=== PATIENT | male | born 1975 | race Caucasian/White ===

== ENCOUNTER → 2016-11-16 | Day surgery (SDC) | payer BC ==
[~2016-11-16] VITALS: Ht 172.7 cm; Wt 77.6 kg
[~2016-11-16] MED LIST: ACETAMINOPHEN INTRAVENOUS 100 ML IV ONE; ATOR20TA PO; BUPIVAC MPF-EPI 0.5%-1:200000 30 ML VIAL. ONE; DESFLURANE 31 TO 60 MINUTES IH ONE; DESFLURANE 61 TO 120 MINUTES IH ONE; DEXAMETHASONE SOD PHOS 20 MG/5 ML VIAL. ONE; FENTANYL PF 100 MCG/2 ML VIAL. IV PRN; FENTANYL PF 100 MCG/2 ML VIAL. ONE; GLYCOPYRROLATE 1 MG/5 ML VIAL. ONE; HYDROMORPHONE 2 MG/ML VIAL. IV PRN; IV RINGERS,LACTATED 1000ML 1,000 ML IV SCH; KETOROLAC 60 MG/2 ML SYRINGE FOR OR. ONE; LIDOCAINE 1% 1 ML SYRINGE. ID PRN; LIDOCAINE 2% 100 MG/5 ML DISP.SYRIN. ONE; MIDAZOLAM HCL/PF 2 MG/2 ML VIAL. ONE; MORPHINE SULFATE 2 MG/ML DISP.SYRIN. IV PRN; NEOSTIGMINE METHYLSULFATE 5 MG/5 ML SYRINGE. ONE; ONDA4TAB7 PO; ONDANSETRON PF 4 MG/2 ML VIAL. IV PRN; ONDANSETRON PF 4 MG/2 ML VIAL. ONE; OXYC-323 PO; OXYCODONE/APAP 5/325 TABLET. PO ONE; PROCHLORPERAZINE 10 MG/2 ML VIAL. IV PRN; PROPOFOL 20 ML IV ONE; ROCURONIUM 50 MG/5 ML VIAL. ONE; SEVOFLURANE 61 TO 120 MINUTES. IH ONE
--- NOTE | 2016-11-16 10:45 | PDOC ---
BRIEF OPERATIVE NOTE Pre-Op Diagnosis incarcerated umb hernia repair of incarcerated umb hernia judi igl ebl 10 ivf 500 mihai well to rr stable. #[id number] ELVIE BROWN MD Nov 16, 2016 10:45
[2016-11-16 11:31] VITALS: BP 123/75
--- NOTE | 2016-11-16 11:37 | OP ---
DATE OF SURGERY: 11/16/2016 PREOPERATIVE DIAGNOSIS: Incarcerated umbilical hernia. POSTOPERATIVE DIAGNOSIS: Incarcerated umbilical hernia. PROCEDURE: Primary repair of incarcerated umbilical hernia. SURGEON: Elvie Brown M.D. ANESTHESIA: General. ESTIMATED BLOOD LOSS: 10 mL. IV FLUIDS: 500 mL. INDICATIONS: The patient is a 41-year-old male with incarcerated umbilical hernia that he would like to have repaired. FINDINGS: His fascial defect was about 1.5 cm and it was repaired primarily with interrupted 0 Prolene sutures. PROCEDURE IN DETAIL: After informed consent was obtained, the patient was taken to the operating room and placed in supine position. After adequate induction of general anesthesia, he was prepped and draped in usual sterile fashion. The skin incision was made in a curvilinear fashion infraumbilically. This was extended through the subcutaneous tissue with cautery. Tonsil was then used to dissect out the umbilical stalk. The dermis was removed from the umbilical stalk with cautery and there was an incarcerated piece of preperitoneal fat noted. The fascial defect was about 0.5 cm. The incarcerated preperitoneal fat was amputated with cautery and sent to pathology for examination. The defect was too small to get a piece of mesh beneath the fascia and be able to ascertain that the mesh had seated appropriately against the intraabdominal wall; therefore a mesh repair was not performed. The repair was performed primarily with interrupted 0 Prolene sutures. Fascia was injected with local anesthetic. Skin incision was injected with local anesthetic. Dermis of the umbilicus was tacked to the fascia with a 3-0 Vicryl suture. The dermal subdermal layer was closed with interrupted 3-0 Vicryl sutures. Skin was closed with 4-0 Monocryl in subcuticular fashion. Sterile dressings were placed, which consisted of Mastisol, Steri-Strips, tonsil ball and Tegaderm. He tolerated the procedure well. There are no apparent complications. He was then transferred in stable condition to the recovery room. ELVIE BROWN MD DR: BRONSON/darlene JOB#: [id number] / [id number] ecc CHRISTINE DOUGLAS DO
--- NOTE | 2016-11-17 11:10 | PATHOLOGY ---
PATHOLOGY REPORT * * * * * * * * FINAL DIAGNOSIS: "Incarcerated umbilical hernia," herniorrhaphy: - Hernia sac with associated adipose tissue. (JESSICA:; d/t: 11/17/16) REPORT ELECTRONICALLY SIGNED BY: Chloe Jones M.D. DATE/TIME: 11/17/2016 11:09 * * * * * * * * GROSS PATHOLOGY: Received in formalin labeled "Alec Adorno and incarcerated umbilical hernia," is a piece of pink-oscar to yellow-oscar, membranous, and lobulated fibroadipose tissue measuring 3.2 x 1.8 x 1.3 cm. No nodules or lesions are identified. Process Control Operator tissue is submitted in cassette A1. (TTL; 11/16/2016) INITIAL CPT CODE(S): A; 58348 Professional services performed [place] [place] [address] Technical services performed by [facility] at [address] [place] [address], [address], [place] [address]. SPECIMEN(S) RECEIVED: A.Incarcerated umbilical hernia CLINICAL HISTORY: Incarcerated umbilical hernia PATIENT: ALEC ADORNO /AGE: 311/08/1975 (Age: 41) PATIENT #: [id number] ALT CASE #: SPECIMEN COLLECTION DATE: 11/16/2016 SPECIMEN RECEIVED DATE: 11/16/2016 [facility] - [address] [place] [address] - PHONE: [phone] * * * END OF REPORT * * *
== END ==
LOC: SURG 07:59
PROVIDERS: ATTEND Surgery
DX: K42.0 Umbilical hernia with obstruction, without gangrene (principal)
CPT/HCPCS: 49587; J0131; J1100; J1885; J1956; J2250; J2405; J2704; J2710; J3010; J3490; A4215; J7120